=== PATIENT | male | born 1955 | race Caucasian/White ===

== ENCOUNTER → 2021-03-15 | Outpatient (CLI) | payer MEDICARE ==
[~2021-03-15] MED LIST: BACL-19 PO; FLUT9.9S NS; GABA800T5 PO; OXYC5CAP2 PO; TAMS-11 PO
[2021-03-15 11:16] LABS: MICROSCOPIC NOT IND
== END | disposition home or self-care (01) ==
LOC: STAR 09:56
PROVIDERS: ATTEND Urology
DX: Z01.818 Encounter for other preprocedural examination (principal); N40.1 Benign prostatic hyperplasia with lower urinary tract symptoms; Z20.822 Contact with and (suspected) exposure to COVID-19
CPT/HCPCS: 81003; 87086; 93005; U0003

== ENCOUNTER 2021-03-21 09:32 | Observation (INO) | payer MEDICARE ==
[~2021-03-21] VITALS: Ht 177.8 cm; Wt 96.6 kg
[2021-03-21] MEDS ORDERED: PRED5DRO20 EACHEYE (09:58)
[2021-03-21] MEDS ORDERED: BRIM5DRO2 RIGHTEYE (09:58)
[2021-03-21] MEDS ORDERED: CHLORHEXIDINE 15 ML UDC PO ONE (10:00)
[2021-03-21] MEDS ORDERED: LACTATED RINGERS 1,000 ML IV SCH (10:00)
[2021-03-21] MEDS ORDERED: CHLORHEXIDINE 15 ML UDC ONE (10:10)
[2021-03-21] MEDS ORDERED: MIDAZOLAM 1 MG/ML, 2ML ONE (10:16)
[2021-03-21] MEDS ORDERED: FENTANYL PF 250 MCG/5ML ONE (10:16)
[2021-03-21] MEDS ORDERED: ROCURONIUM 10MG/ML,5ML ONE (10:17)
[2021-03-21] MEDS ORDERED: PROPOFOL 10 MG/ML, 20ML ONE (10:17)
[2021-03-21] MEDS ORDERED: DEXAMETHASONE 4 MG/ML, 1ML ONE ×2 (10:18)
[2021-03-21] MEDS ORDERED: KETOROLAC 30 MG/1 ML ONE (10:18)
[2021-03-21] MEDS ORDERED: ONDANSETRON 2MG/ML, 2ML ONE (10:18)
[2021-03-21] MEDS ORDERED: CEFAZOLIN 1,000 MG ONE (10:18)
[2021-03-21] MEDS ORDERED: LIDOCAINE-MPF 2% ,5ML ONE (10:18)
[2021-03-21] MEDS ORDERED: GLYCOPYRROLATE 0.2MG/1ML, 5ML ONE (11:11)
[2021-03-21] MEDS ORDERED: NEOSTIGMINE 1 MG/ML, 10ML ONE (11:11)
[2021-03-21] MEDS ORDERED: FENTANYL PF 100 MCG/2ML IV PRN (12:00)
[2021-03-21] MEDS ORDERED: LABETALOL 5MG/ML, 20ML IV PRN (12:00)
[2021-03-21] MEDS ORDERED: hydrALAzine 20 MG/ML, 1ML IV PRN (12:00)
[2021-03-21] MEDS ORDERED: PROMETHAZINE 25 MG/ML, 1ML IVPush PRN (12:00)
[2021-03-21] MEDS ORDERED: MEPERIDINE/PF 25MG/0.5ML IVPush PRN (12:00)
[2021-03-21] MEDS ORDERED: BACLOFEN 10 MG TABLET PO SCH (12:00)
[2021-03-21] MEDS ORDERED: ACETAMINOPHEN 325 MG TABLET PO PRN (12:00)
[2021-03-21] MEDS ORDERED: OXYcodone 5 MG/5 ML ORAL.SOL UDC PO PRN (12:00)
[2021-03-21] MEDS ORDERED: HYDROmorphone 1 MG/ML, 1ML INJ IVPush PRN (12:00)
[2021-03-21] MEDS ORDERED: DIPHENHYDRAMINE 50 MG/ML, 1ML IVPush PRN (12:00)
[2021-03-21] MEDS ORDERED: GABAPENTIN 400 MG CAPSULE PO SCH (12:00)
[2021-03-21] MEDS ORDERED: ONDANSETRON 2MG/ML, 2ML IVPush PRN (12:00)
[2021-03-21] MEDS ORDERED: OXYcodone 5 MG/5 ML ORAL.SOL UDC ONE (12:20)
[2021-03-21] MEDS ORDERED: ONDANSETRON 2MG/ML, 2ML IV PRN (12:30)
[2021-03-21] MEDS ORDERED: OXYcodone/APAP 5/325MG TABLET PO PRN (12:30)
[2021-03-21] MEDS ORDERED: GABAPENTIN 400 MG CAPSULE PO ONE (13:00)
[2021-03-21] MEDS ORDERED: FENTANYL PF 100 MCG/2ML ONE (13:05)
[2021-03-21 13:45] VITALS: BP 137/84
[2021-03-21] MEDS: GABAPENTIN 400 MG CAPSULE PO SCH ×2 (15:14→21:23)
[2021-03-21] MEDS: BACLOFEN 10 MG TABLET PO SCH ×2 (16:04→21:24)
[2021-03-21] MEDS: LACTATED RINGERS 1,000 ML IV SCH (16:05)
[2021-03-21] MEDS: OXYcodone IR 5MG TABLET PO PRN (17:48)
[2021-03-21 20:00] VITALS: BP 153/83
[2021-03-21] MEDS ORDERED: FLUTICASONE NASAL SPRAY 16GM NAS SCH (21:00)
[2021-03-21] MEDS: COMBIGAN EYE RIGHTEYE SCH (21:00)
[2021-03-21] MEDS: predniSOLONE OPHTH. 1%,1ML EACHEYE SCH (21:24)
[2021-03-21 23:35] VITALS: BP 110/70
[2021-03-22] MEDS: OXYcodone IR 5MG TABLET PO PRN ×3 (00:01→11:46)
[2021-03-22] MEDS: LACTATED RINGERS 1,000 ML IV SCH (01:19)
[2021-03-22 03:54] VITALS: BP 112/68
[2021-03-22] MEDS: GABAPENTIN 400 MG CAPSULE PO SCH (05:18)
[2021-03-22 07:43] VITALS: BP 127/96
[2021-03-22] MEDS: COMBIGAN EYE RIGHTEYE SCH (08:41)
[2021-03-22] MEDS: BACLOFEN 10 MG TABLET PO SCH (08:41)
[2021-03-22] MEDS: predniSOLONE OPHTH. 1%,1ML EACHEYE SCH (08:41)
[2021-03-22] MEDS ORDERED: TAMSULOSIN 0.4 MG CAP.ER.24H PO SCH (09:00)
[2021-03-22 11:47] VITALS: BP 112/76
== END 2021-03-22 13:07 | disposition home or self-care (01) ==
LOC: OUT 09:32 → ORIP 12:10 → 4NE 13:49 → DCLOUNGE 03-22 13:03
PROVIDERS: ADMIT Urology; ATTEND Urology
DX: N40.0 Benign prostatic hyperplasia without lower urinary tract symptoms (principal); I10 Essential (primary) hypertension; G47.33 Obstructive sleep apnea (adult) (pediatric); Z88.0 Allergy status to penicillin; Z79.899 Other long term (current) drug therapy
CPT/HCPCS: 52601; 88305; 96360; 96361; G0378; J0690; J1100; J1885; J2250; J2405; J2704; J2710; J3010; J3490; J7120